=== PATIENT | female | born 1940 | race Caucasian/White ===

== ENCOUNTER 2016-05-29 23:40 | Inpatient (IN) ==
[2016-05-30 00:46] LABS: BASO% 0.2 % (0.0-0.8); EOS# 0.02 X1000 (0.0-0.7); EOS% 0.1 % (0.0-10.0); HEMATOCRIT 31.8 % (37.0-47.0); HEMOGLOBIN 10.7 g/dL (12.0-16.0); IMM GRAN# 0.29 X1000 (0.0-0.04); IMM GRAN% 1.6 % (0.0-0.5); LYMPH# 1.07 X1000 (1.2-3.4); MANUAL DIFF NEEDED? NO; MCH 35.8 PG (27-31); MCHC 33.6 g/dL (33-37); MCV 106.4 FL (81-99); MONO# 0.97 X1000 (0.11-0.59); MONO% 5.4 % (1.7-9.3); MPV 10.7 FL (7.4-10.4); NEUT% 86.7 % (42.2-75.2); PLT 228 X1000 (130-400); RBC 2.99 XMIL (4.2-5.4)
[2016-05-30 01:09] LABS: ALBUMIN 2.8 g/dL (3.5-5.0); CALCIUM 8.2 mg/dL (8.8-10.2); MAGNESIUM 1.8 mg/dL (1.5-2.7); POTASSIUM 4.1 mmol/L (3.5-5.1); TOTAL BILIRUBIN 0.23 mg/dL (0.20-1.00)
[2016-05-30 01:46] LABS: INR 1.1; PROTIME 11.3 Seconds (9.2-11.7); PTT 26.8 Seconds (22.0-36.0)
[2016-05-30] MEDS ORDERED: DILAUDID IV ONE (01:48)
[2016-05-30] MEDS ORDERED: DILAUDID ONE (01:49)
[2016-05-30] MEDS ORDERED: CATAPRES PO ONE ×2 (03:49)
[2016-05-30] MEDS ORDERED: NS 1,000 ML IV ONE (03:59)
[2016-05-30] MEDS ORDERED: TYLENOL PO PRN (04:39)
--- NOTE | 2016-05-30 04:49 | HISTORY AND PHYSICAL ---
REASON FOR ADMISSION: Chest pain 8 hours ago. HISTORY OF PRESENT ILLNESS: Ms. Brennan Morris is a 75-year-old lady with a past medical history of type 2 diabetes, hypertension, stage IV pancreatic cancer, and osteoarthritis who comes in today complaining of "hard chest pain" which was radiating down her left arm and up her left jaw. It was associated with worsening of her chronic nausea, palpitations, and shortness of breath. She denies any antecedent history of leg swelling or extremity redness or pain. No cough, fever, or chills. No PND or orthopnea. No hemoptysis. She states she has a very poor appetite. Three weeks ago, she received chemotherapy from Dr. Wood and a week from now is scheduled to have a PET scan. She also reports chronic abdominal pain with simultaneous nausea but this has not worsened today. The patient also reports that the pain was so intense that she almost passed out. REVIEW OF SYSTEMS: Twelve systems were reviewed and were negative except for the positive findings noted in the HPI. She has subjective weight loss noted. She received 0.5 mg of Dilaudid and this has resolved her pain. ALLERGIES: No known allergies. MEDICATIONS: She is on diazepam 2 mg b.i.d. and at bedtime, Lasix 80 mg daily, lisinopril 20 mg daily, hydrocodone 10 mg q.6 p.r.n., Megace 400 mg daily, Reglan 5 mg four times a day, omeprazole 20 mg daily, Zofran 4 mg q.6 p.r.n., Klor-Con 10 mEq daily. FAMILY HISTORY: No history of heart disease, cancer, or thrombophilia in first-degree relatives. SOCIAL HISTORY: She is still currently smoking, smokes about a pack a day. No immediate plans to quit. No alcohol or illicit drug use. SURGICAL HISTORY: She has had hysterectomy, hemorrhoidectomy, heel spur resection, and Whipple procedure performed by Dr. Bolden. LABORATORY WORK: EKG showed sinus tachycardia with PACs. White count is 18,000, hemoglobin and hematocrit 10 and 31, with an MCV of 106, platelets 228,000, 86% neutrophils. BUN is 18, creatinine 1, glucose 159. CK 35. ProBNP 1300. PT and PTT are normal. D-dimer was 1.55. PHYSICAL EXAMINATION: GENERAL: Chronically ill, woman who is alert and oriented to person and time with normal mood and affect. VITAL SIGNS: Her blood pressure when I saw her was 180/70, heart rate was 115, 98.5, respiration was 18. O2 saturation is 97% on room air. HEENT: Head is normocephalic, atraumatic. Eyes: She is pale. She is anicteric. MELINDA, EOMI. ENT and oropharyngeal exam, no oropharyngeal exudates, no central cyanosis. NECK: Supple. No JVD or carotid bruit. No thyromegaly. LYMPHATICS: No lymphadenopathy in the cervical, supraclavicular, axillary chains. CHEST: Surprisingly is clear to auscultation with diminished air entry in the bases. CARDIOVASCULAR: First and second heart sounds heard. No gallops, murmurs, rubs. Rhythm is irregular. ABDOMEN: Protuberant, soft, with mild epigastric and upper quadrant tenderness. No rebound or guarding. No mass or organomegaly appreciated. RECTAL: Examination is deferred at this time. EXTREMITIES: No edema, clubbing, or peripheral cyanosis. Pulses distally are intact and with good volume symmetrically. NEUROLOGICAL: No focal deficits. SKIN: Intact with no breakdown, lesions, or erythema. MUSCULAR: Examination is grossly normal. ASSESSMENT: 1. Chest pain. Etiology yet to be determined. 2. Leukocytosis, reactive versus probably secondary to granulocyte-colony stimulating factor administration. 3. Stage IV pancreatic cancer. 4. Macrocytic anemia, (?) chemotherapy effect. 5. Hypertension. 6. Type 2 diabetes. PLAN: At this time, due to the fact that prior to this time, the patient has moderate probability for ischemic heart disease and for pulmonary embolism (Well's criteria), I think the prudent thing to be done would be to order a CT angiogram to rule out a PE since this is occurring on the left hemothorax as opposed to the right where the chest x-ray today showed a pleural effusion which has been there for a while. We will do serial cardiac enzymes to rule out an ischemic etiology. However, in the bigger scheme of things, the patient has a stage IV cancer and I doubt if any aggressive intervention will be offered if she does have an acute coronary syndrome due to her degree of malignancy. However, if she does have a PE, we will treat her optimally with anticoagulants per Dr. Wood's discretion. Dr. Wood will be consulted to see the patient in the a.m. In the interim, we will treat the patient symptomatically. Primary care physician is Dr. Ribeiro. Currently, the patient is asymptomatic and resting comfortably, and I have shared the plan of action with her. cc: MD Maco Downing MD Sammy Becdach, MD
[2016-05-30] MEDS: ZOFRAN IV PRN ×3 (04:50→19:29)
[2016-05-30] MEDS: MORPHINE IV PRN ×4 (04:50→19:33)
[2016-05-30] MEDS: PRILOSEC PO SCH ×2 (06:30→08:25)
[2016-05-30] MEDS: LOVENOX SUBQ SCH ×2 (06:34→08:25)
[2016-05-30] MEDS: REGLAN PO SCH ×4 (08:25→20:46)
[2016-05-30] MEDS: VALIUM PO SCH ×2 (08:25→20:46)
[2016-05-30] MEDS: ASPIRIN PO SCH (08:25)
[2016-05-30] MEDS: LASIX PO SCH (08:25)
[2016-05-30] MEDS ORDERED: PRILOSEC PO SCH (09:00)
--- NOTE | 2016-05-30 09:43 | Diag Imaging Result Document ---
PROCEDURE NAME: ANGIOGRAM/PULMONARY ARTERIES - 05/30/2016 CT ANGIOGRAM PULMONARY ARTERIES WITH CONTRAST: TECHNIQUE: Exam performed with intravenous contrast. A dose reduction protocol was used. Axial and reformatted coronal images are obtained. Compared with a CT thorax of 05/10/2016. FINDINGS: There are no filling defects identified in the pulmonary arteries. There is no indication of aortic dissection. There is a moderate right pleural effusion which is increased. There is a 1.6-cm cavitary lesion at the right lower lobe which appears stable. There is a 0.9-cm nodular opacity at the medial left apex which appears stable. There is no pneumothorax seen. There are no substantially enlarged mediastinal lymph nodes identified. There is fatty infiltration of visualized liver noted. IMPRESSION: 1. No evidence of pulmonary embolism. 2. Moderate right pleural effusion which has increased. 3. Stable cavitary opacity at right lower lobe. Stable small nodular density at the left apex. Metastatic lesions cannot be excluded. A [facility] physician provided preliminary results at 6:21 a.m. on 05/30/2016. [facility] CENTERDelfino
--- NOTE | 2016-05-30 10:02 | Diag Imaging Result Document ---
PROCEDURE NAME: CHEST-PORTABLE - 05/30/2016 PORTABLE CHEST: Compared with 04/14/2016. FINDINGS: Central venous catheter remains in place. There is a moderate right pleural effusion which is increased. There are no other acute changes identified. There is no pneumothorax seen. IMPRESSION: Moderate right pleural effusion which has increased. MTDD
[2016-05-30] MEDS: NICODERM PATCH TD SCH (11:39)
[2016-05-30] MEDS: NITROGLYCERIN TOP SCH ×2 (11:39→16:56)
--- NOTE | 2016-05-30 12:27 | PROGRESS NOTE ---
DATE: 05/30/2016 SUBJECTIVE: The patient's chart was reviewed. In summary, patient was admitted in the early childhood assistant hours with chest pains of undetermined etiology and leukocytosis. Full evaluation was pursued. Chest x-ray revealed a moderate right pleural effusion. CT angiogram of the chest also revealed a moderate right pleural effusion and a stable cavitary opacity at the right lower lobe. Stable small nodular densities at the left apex were also identified. Upon review of old data, this has been biopsied in the past and confirmed to be metastatic pancreatic cancer. Initial CK level returned at 35 with a troponin of 0.018. Repeat troponin this morning returned at 0.174. Upon my evaluation, patient was chest pain free. She is being treated with palliative measures. OBJECTIVE: Vital Signs: T-max 98.5 degrees, heart rate 83-115, respirations 15-18, blood pressure 115-177/64-125. General: Chronically ill-appearing, no acute distress. Cardiovascular: Regular rate and rhythm. No significant murmurs, rubs, or gallops. Pulmonary: Decreased breath sounds at the right base. Abdomen: Soft, diffusely tender without guarding or rebound. Positive bowel sounds. Extremities: Moves all extremities well. No significant clubbing, cyanosis, or edema. Dermatologic: Evaluation reveals no evidence of rash. ASSESSMENT AND PLAN: 1. Chest pain/unstable angina-as above, initial cardiac enzymes returned negative. Repeat troponin returned positive. The patient is currently having an echocardiogram performed. We will consult Dr. Mckeon. We will determine further plans depending on his evaluation. We will remain aware that patient does have underlying metastatic pancreatic cancer. 2. Metastatic pancreatic cancer-this is very concerning. Patient has a persistent pleural effusion with pulmonary disease. We will check that Dr. Wood has been consulted. 3. Leukocytosis-at this point, this likely is secondary to granulocyte colony stimulating factors. We will continue to follow serial evaluations. 4. Hypertension-patient's blood pressure is elevated. We will resume her home medications. 5. Tobacco use-we will start a nicotine patch. 6. Type 2 diabetes-we will cover patient with sliding scale insulin. cc: MD Maco Busch MD
[2016-05-30] MEDS: HUMALOG SUBQ SCH ×2 (16:56→20:49)
--- NOTE | 2016-05-30 18:13 | CONSULTATION ---
DATE OF CONSULTATION: 05/30/2016 REQUESTING PHYSICIAN: Dr. Moore on behalf of Dr. Ribeiro. REASON FOR CONSULTATION: Chest pain, positive troponins, coronary heart disease suspected. HISTORY: The patient is a 75-year-old female who was in her usual state of health at home yesterday around 7 p.m. May 29, when all of a sudden, she developed severe substernal chest pain radiating to the left shoulder, left side of the jaw, left arm. It lasted for a number of hours until eventually it got better after presentation to the emergency room department. I believe they gave her some pain shot and that seemed to help. The patient says that she has not experienced any pains like that in the past. Upon presentation a chest x-ray was done that shows a moderate right pleural effusion which has increased from prior. A CT of the chest was done which shows no pulmonary embolism, there was a moderate right pleural effusion which has increased, a stable cavitary opacity at the right lower lobe, stable small nodular density of the left apex. The patient had an EKG done at 11 p.m. which sinus rhythm with PACs , no ischemic changes. Troponin level initially was 0.018 and then 0.174. Pro BNP was 1346. Upper are normal for her would be 353. The patient had a D-dimer of 1.[address] scan of the chest. Her white count was 17,870; hemoglobin 10.7, hematocrit 31.8, platelet count 228 ,000. The patient is feeling better this morning. I am seeing her at 11 a.m. She is not having any more pains. PAST MEDICAL HISTORY: Positive for pancreatic cancer metastatic to the lung. Back on December 22, 2015, she underwent fine needle aspiration of the right lung complicated by pneumothorax. 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 She has been undergoing chemotherapy by the oncology services. The patient does have history of diabetes, hypertension, and perioperative paroxysmal atrial fibrillation in July 2014 around the time when she had extensive abdominal surgery. [facility] Fields because of abnormal ECG. She had received on 01/30/13 a lexiscan MPI which showed a focal partially reversible apical anterior defect. Back then attenuation artifact was suspected. She has had noninvasive studies of the legs indicating possible occlusive disease of the superficial femoral artery bilateral compatible with bilateral claudication. PAST SURGICAL HISTORY: Her surgical history is hysterectomy, hemorrhoidectomy , she has had Whipple procedure.August 06 2014: pacreaticoduodenectomy,right hemicolectomy, Witzel type jejunostomy. Pathology indicated moderately differentiated ductal adenocarcinoma of pancreas extending into duodenum and peripancreatic tissue with lymphovascular invastion and neural invasion.4 lymph nodes were positive. SOCIAL HISTORY: She lives by herself. The patient states that she has been a smoker of 1 and 1/2 packs a day for many years, at least 50 years. She has not quit or cut down on it in spite of the diagnosis of malignancy. REVIEW OF SYSTEMS: Chronically debilitated, getting more shortness of breath lately, especially with physical activity; no prior episodes of chest pain other than the one that she reported at the time of admission. MEDICATIONS: Please refer to the EMR. PHYSICAL EXAMINATION: VITAL SIGNS: Blood pressure today is 172/64, temperature 97.8, respirations 22 , pulse 83. GENERAL: The patient is awake, alert, chronically ill. HEENT: She has alopecia secondary to chemotherapy. No oral mucosal lesions. NECK: Veins are not distended. CHEST: Shows significantly diminished breath sounds in the right lung with dullness to percussion. No rales are noted. CARDIAC: Heart sounds regular and rhythmic. I do not hear any murmurs, rubs, or gallops. ABDOMEN: Very exquisitely tender in the epigastric area with no hepatomegaly. Bowel sounds are present. EXTREMITIES: Showed no evidence of any significant edema. Pulses are diffusely diminished. NEUROLOGIC: Generally she appears to be weak. She is awake, follows commands and oriented x3, moves 4 extremities. IMPRESSION AND PLAN: 1. The patient presented with chest pain that is very suspicious for an episode of angina pectoris prolonged. 2. History of metastatic pancreatic cancer to the lung with a growing or enlarging pleural effusion on the same side. 3. A history of long-term smoker 1 and 1/2 packs a day for 50 years. 4. History of hypertension in the past. 5. history of mildly abnormal nuclear MPI stress test back in January 2013. 6. History of perioperative paroxysmal atrial fibrillation July 2014. 7. 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 8. s/p pancreatectomy. 9. large right pleural effusion noted on CT scan of chest. RECOMMENDATIONS: From cardiology viewpoint, I would recommend a gathering of physicians to determine the actual real prognosis of this patient. It seems that with metastatic pancreatic cancer her odds for survival are extremely low and it would not make any sense to subject the patient to a series of cardiac tests that would eventually lead to a recommendation of heart catheterization. I would suggest to treat her symptomatically for the time being by optimizing her systemic blood pressure with anti-hypertensive drugs and general generous use of opioids and consider also draining the enlarging right pleural effusion. That may result in more symptomatic relief of her discomfort. Thank you for asking us to participate in her evaluation. cc: MD Maco Gonzalez MD MTDD
[2016-05-31] MEDS: MORPHINE IV PRN ×5 (00:29→22:54)
[2016-05-31] MEDS: NITROGLYCERIN TOP SCH ×5 (00:30→22:55)
[2016-05-31] MEDS: VALIUM PO SCH ×4 (02:25→21:22)
--- NOTE | 2016-05-31 05:52 | EKG Report ---
Test Performed on : 05/29/2016 11:58:41 PM Test Reason : chest pain Blood Pressure : / mmHG Vent. Rate : 097 BPM Atrial Rate : 097 BPM P-R Int : 146 ms QRS Dur : 074 ms QT Int : 350 ms P-R-T Axes : 048 050 027 degrees QTc Int : 444 ms Sinus rhythm. with premature atrial complexes. Otherwise normal ECG When compared with ECG of 16-SEP-2014 13:50, premature atrial complexes. are now present Unconfirmed Result
[2016-05-31] MEDS: PRILOSEC PO SCH (06:22)
[2016-05-31] MEDS: HUMALOG SUBQ SCH ×4 (06:23→21:22)
--- NOTE | 2016-05-31 07:43 | EKG Report ---
Test Performed on : 05/31/2016 06:56:23 AM Test Reason : TN non ST elevation Blood Pressure : / mmHG Vent. Rate : 100 BPM Atrial Rate : 100 BPM P-R Int : 142 ms QRS Dur : 076 ms QT Int : 372 ms P-R-T Axes : 032 023 -32 degrees QTc Int : 479 ms Normal sinus rhythm. T wave abnormality, consider inferior ischemia Prolonged QT Abnormal ECG When compared with ECG of 29-MAY-2016 23:58, (Unconfirmed) premature atrial complexes. are no longer present T wave inversion now evident in Inferior leads T wave inversion now evident in Lateral leads Confirmed by Rogers MARRERO, Braden Frankel ([id number]) on 05/31/2016 9:40:00 AM
[2016-05-31] MEDS: LOVENOX SUBQ SCH ×2 (08:42→09:08)
[2016-05-31] MEDS: REGLAN PO SCH ×4 (08:42→21:21)
[2016-05-31] MEDS: ASPIRIN PO SCH (08:42)
[2016-05-31] MEDS: LASIX PO SCH (08:42)
[2016-05-31] MEDS: PRINIVIL PO SCH (08:42)
[2016-05-31] MEDS: NICODERM PATCH TD SCH (08:43)
--- NOTE | 2016-05-31 16:24 | ECHO REPORT ---
ORDER DATE: 05/30/2016 INTERPRETING PHYSICIAN: Dr. Mckeon REQUESTING PHYSICIAN: CLINICAL INDICATIONS: This is a 75-year-old female with chest pain, diabetes, hypertension, metastatic pancreatic cancer, presenting with chest pain. M-MODE MEASUREMENTS: Right ventricle: 3.1 cm. Left ventricle end diastole: 4.2 cm. Left ventricle end systole: 2.9 cm. Posterior wall: 1.0 cm. Interventricular septum: 1.2 cm. Left atrium: 3.1 cm. Aortic root: 2.9 cm. SUMMARY OF 2-DIMENSIONAL IMAGIN. Left ventricular function is normal. Ejection fraction is estimated at 64%. 2. There is questionable hypokinesis of the basal posterior wall. This is very subtle. The global function is completely normal. 3. The mitral valve shows trace regurgitation. 4. Pulse wave Doppler of mitral inflow shows reversal of the E and the A wave. 5. Tissue Doppler of the septal and lateral mitral annulus averages 5.5 cm. 6. The aortic valve looks normal. Color flow mapping is unremarkable. 7. The tricuspid valve shows very mild regurgitation. 8. The pulmonary pressure is estimated t 37 mmHg. 9. Pulmonic valve is unremarkable. 10.There is no pericardial effusion, mass or thrombus. CONCLUSIONS: 1. Normal or very well preserved left ventricular systolic function. Ejection fraction is 64%. There is a questionable focal hypokinetic segment in the basal to mid posterior wall of the left ventricle. Again, this is very subtle and might be artifactual. 2. Impaired left ventricular relaxation. 3. Mildly elevated pulmonary pressure at 37 mmHg. 4. No evidence of any significant valvular abnormality. Clinical correlation is recommended. cc: MD Tonja Gonzalez MD Timothy P. Weirich, MD
--- NOTE | 2016-05-31 16:55 | PROGRESS NOTE ---
DATE: 05/31/2016 SUBJECTIVE: The patient's chart was reviewed in regard to all of the findings over the weekend and her presentation. This was discussed at length with the patient. I also talk with Dr. Mckeon and I put a call in to Dr. Milan. The patient presented with chest pain and had subsequent elevations in troponin. Dr. Mckeon evaluated her but given her grave ultimate prognosis he was very reluctant to do any type of significant cardiovascular testing. I was in agreement with this and I discussed it with the patient and she also agreed. The patient had an outpatient procedure scheduled for tomorrow with Dr. Milan in which she was going to get an EGD with esophageal dilation due to difficulty swallowing medications. She was also going to have colonoscopy. This was scheduled in the outpatient center. The patient expressed a deep concern about her transportation issues between home and did not want to go home before Dr. Milan had decided whether she could have this procedure done while she was in the hospital. Given her recent history with cardiovascular issues, I am not sure that it is appropriate particularly given the fact that the patient can swallow, it is just not as easy as it was in the past. OBJECTIVE: Vital signs: Temperature 98, pulse rate 89, blood pressure 149/69. General: She is an elderly white female who looks somewhat ravaged by her cancer and chemotherapy. In general, she is alert, oriented, conversive, and appropriate. Lungs: Clear. There is a slight diminishment of breath sounds in the posterior right base. She is not wheezing. She is not struggling to breathe. Extremities: There is 1+ edema. ASSESSMENT AND PLAN: 1. As discussed above, Dr. Mckeon does not want to do any aggressive cardiac testing and the patient does not want this done either. 2. I offered the patient a therapeutic palliative thoracentesis to remove the fluid and help her breathing. She refused this based on the fact that when she had a previous lung biopsy she ended up with a pneumothorax. I tried to explain that the procedure was different but she steadfastly refused. 3. The patient's swallowing difficulty and bowel issues persists. Given recent cardiac events. I am not sure if Dr. Milan wants to put her under anesthesia to do these procedures. They will not be life-saving. I put in a call to Dr. Bjorn but never got a call back. I also put in a consult so hopefully he will come and see the patient today. I realize he is off-site doing procedures elsewhere today, so there may be some communication difficulties. 4. The patient's overall prognosis was stage IV pancreatic cancer and likely lung metastases as well is terrible. She is aware of this and I stated this to her in our interview today. She wants to be comfortable and does want to be able to swallow better but again, I am not sure that this procedure would be a great idea right now. 5. We will supply her with whatever needs she has for pain control. cc: Maco Ribeiro MD
[2016-05-31] MEDS: ZOFRAN IV PRN (21:30)
[2016-06-01] MEDS: ZOFRAN IV PRN ×4 (01:35→22:30)
[2016-06-01] MEDS: MORPHINE IV PRN ×7 (01:36→20:24)
[2016-06-01] MEDS: PRILOSEC PO SCH ×2 (05:51→07:34)
[2016-06-01] MEDS: HUMALOG SUBQ SCH ×4 (06:39→20:25)
[2016-06-01] MEDS: NITROGLYCERIN TOP SCH ×4 (06:52→22:33)
[2016-06-01] MEDS: LOVENOX SUBQ SCH (08:43)
[2016-06-01] MEDS: NICODERM PATCH TD SCH (08:43)
[2016-06-01] MEDS: ASPIRIN PO SCH (08:48)
[2016-06-01] MEDS: REGLAN PO SCH ×4 (08:48→20:25)
[2016-06-01] MEDS: VALIUM PO SCH ×3 (08:48→20:25)
[2016-06-01] MEDS: LASIX PO SCH (08:48)
[2016-06-01] MEDS: PRINIVIL PO SCH (08:48)
--- NOTE | 2016-06-01 09:29 | PROGRESS NOTE ---
DATE: 06/01/2016 CHIEF COMPLAINT: Chest pain. SUBJECTIVE: Mrs. Morris had an uncomfortable night last night. She was having nausea she was having pain in the anterior chest. She says that she says that the pain is pleuritic in nature. She had issues with the IV. They had to poke her several times in the right arm. Eventually, they found an IV in the left arm. They gave her pain medication and now she is more comfortable. I am seeing her about 7:45 a.m.. OBJECTIVE: Vital signs: Blood pressure 152/51, temperature 98.2, pulse 100, respirations 18. General: She is awake, alert, oriented. HEENT: Unremarkable. Chest: Diminished breath sounds in the right lung. Dullness to percussion. Cardiac: Heart sounds regular and rhythmic. I do not hear a gallop or murmur. Abdomen: Nontender. Extremities: No edema. Abdomen: I do not feel any hepatomegaly in the abdomen. EKG: A 12-lead EKG done yesterday at 6:56 in the morning shows a nonspecific diffuse T-wave abnormality in the inferoapical leads. That is a change compared to prior one. BLOOD WORK: Her troponins were initially 0.018 then became positive, 0.174, 0.304, and 0.327. Her CPKs were all within normal range. IMPRESSION: 1. Patient presenting with chest pain, possibly [id number] myocardial infarction. The patient had nonspecific T-wave changes and a clinical course consistent with it. Echocardiogram revealed well-preserved ejection fraction of the left ventricle with questionable focal posterior wall hypokinesis. Patient is likely to have underlying coronary heart disease, given her long-term history of being a smoker. 2. Very advanced metastatic pancreatic cancer with progression of disease in spite of therapy. She has pleural effusion on the right side. Her current chest pain is pleuritic. 3. History of tobacco use for a long time. The patient probably has underlying COPD as a consequence of it. 4. History of perioperative paroxysmal atrial fibrillation in July of 2014. RECOMMENDATION: I have reviewed Dr. Ribeiro's from May 31, and I completely agree with each one of his statements. From a cardiac viewpoint, I do not believe that this patient is going to benefit in any way by putting her through any additional cardiac testing. She is not a candidate for catheterization or angioplasty. I would suggest to offer comfort measures.Thoracentesis of right lung may be an effective palliative measure. At this point in time, my recommendation is to refer this patient for hospice care, and please feel free to call me should you have any questions about my opinion and evaluation. cc: MD Maco Gonzalez MD MTDD
--- NOTE | 2016-06-01 10:27 | CONSULTATION ---
DATE OF CONSULTATION: 05/31/2016 ADMITTING PHYSICIAN: Tonja Sainz MD. REQUESTING PHYSICIAN: Tonja Sainz MD. We appreciate this consult. CHIEF COMPLAINT: Chest pain. 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 The patient was recently begun on Abraxane with the last dose being given on 05/19/2016. The patient presented to [facility] Emergency Department secondary to "hard chest pain which radiated down her left arm and up her left jaw". She reports it was associated with nausea, shortness of breath and palpitations. The patient has recently had a very poor appetite and has lost weight. Her current weight is 135 pounds. The patient is admitted with consult by cardiology. We are consulted to follow along secondary to the patient's history of pancreatic cancer. PAST MEDICAL HISTORY: 1. Pancreatic cancer. 2. Chronic kidney disease stage III. 3. Iron-deficiency anemia. 4. Coronary artery disease. 5. Diabetes mellitus type 2. 6. Osteoarthritis. 7. Hypertension. 8. Recent pleural effusion. PAST SURGICAL HISTORY: 1. Hysterectomy. 2. Hemorrhoidectomy. 3. Heel spur resection. 4. Whipple procedure. FAMILY HISTORY: Negative for any oncologic or hematologic problem. SOCIAL HISTORY: The patient smokes approximately 1 pack of cigarettes a day. She has no history of alcohol or illicit drug use. MEDICATIONS ON ADMISSION: 1. Diazepam. 2. Lasix. 3. Lisinopril. 4. Hydrocodone. 5. Megace. 6. Reglan. 7. Omeprazole. 8. Zofran. 9. Klor-Con. ALLERGIES: The patient has no known drug allergies. REVIEW OF SYSTEMS: A 14 point review of systems was obtained and is negative, except for as mentioned in HPI. PHYSICAL EXAM: General: Ms Morris is an elderly, 75-year-old, female , sitting up in bed in no immediate distress. Vital Signs: Temp 98.0 degrees, blood pressure 149/ 69, heart rate 89, respirations 18, O2 saturation is 98% on room air. HEENT: Normocephalic, atraumatic. Mucous membranes are pink and moist. Sclerae is anicteric. Extraocular movements intact. Neck: Supple. Lungs: Clear to auscultation bilaterally. Chest expansion is equal bilaterally. CV: S1, S2 is heard without murmur, rub or gallop. Abdomen: Soft, nondistended, tender in the right upper quadrant. Bowel sounds are positive in all quadrants. No rebound or guarding noted. Extremities: Without clubbing, cyanosis, or edema. Dermatologic: No rashes, bruises or lesions. Neurologic: The patient is awake, alert, and oriented x3. She has no focal deficit at this time. LABORATORY DATA: Hemoglobin 10.7, hematocrit 31.8, white blood cell count 17.97 , platelets 228. ANC is 15.59, INR 1.10, D-dimer is 1.55. Sodium 137, potassium 4.1, chloride 106, CO2 is 19, BUN 18, creatinine 1.0, glucose 159, calcium 8.2, magnesium 1.8, bilirubin 0.23, alkaline phosphatase 159, AST 12, ALT 7, troponins are 0.327. ProBNP is 1346. IMAGING STUDIES: Chest x-ray reveals moderate right pleural effusion. Pulmonary arteriogram reveals no pulmonary embolus and further confirms right lower lobe cavitary opacity. ASSESSMENT AND PLAN: 1. Stage IV pancreatic cancer. Currently on Abraxane weekly, last treatment being 05/19/2016. We will hold all further treatments until the patient's acute illness has past. 2. Leukocytosis, questionably related to Neulasta affect. White blood cell count is currently 17.97. 3. Chest pain with an elevated troponin to 0.327. Cardiology is currently following. 4. Diabetes mellitus type 2. Glucose is currently 159, stable at this time. 5. Abdominal pain that has been ongoing. The patient is being followed by Dr. Milan with EGD and colonoscopy scheduled for Wednesdays. 6. We will follow along with you and make further recommendations pending outcomes. 7. The above reflects the history, exam, assessment and plan of Dr. Wood. Dictated by KENDALL Morales for Jd Wood MD cc: KENDALL Morales MD Timothy P. Weirich, MD [facility] INSANEDelfino
--- NOTE | 2016-06-01 11:05 | Diag Imaging Result Document ---
PROCEDURE NAME: CHEST-2 VIEWS - 06/01/2016 SEATED INSPIRATORY AND EXPIRATORY AP RADIOGRAPH OF THE CHEST, 2 VIEWS: COMPARISON: 05/30/2016. FINDINGS: There is no evidence of pneumothorax status post right thoracentesis. No significant residual pleural fluid can be identified on the right status post thoracentesis. The right lung base is re-aerated. The chest is stable otherwise. IMPRESSION: No evidence of pneumothorax status post right thoracentesis with significant decrease in the amount of pleural fluid on the right as compared to the preprocedural radiograph.
--- NOTE | 2016-06-01 11:36 | CONSULTATION ---
DATE OF CONSULTATION: 05/31/2016 HISTORY OF PRESENT ILLNESS: This is a 75-year-old white female who we had recently seen in our office on 05/17/2016. At that time, she had complained of abdominal pain, abdominal cramping, rectal pain. She had also noted some dysphagia. An EGD and colonoscopy was scheduled for outpatient procedures for 06/01/2016, but the patient presented to the hospital with chest pain. She was evaluated by Cardiology, and it was felt due to her other medical problems, including pancreatic cancer, that an invasive cardiac workup would not be recommended. The patient denies chest pain now. She does report chronic nausea. She has had some shortness of breath. She had a recent CT scan that showed a new patchy focal opacity in the right lower lung. She is receiving chemotherapy and following with Dr. Wood. She had a recent PET scan, but she does not know those results. She reports chronic abdominal pain and cramping associated with some nausea with episodes of vomiting. PAST MEDICAL HISTORY: For pancreatic cancer, diabetes, hypertension. PAST SURGICAL HISTORY: Whipple surgery, hemorrhoidectomy, hysterectomy. ALLERGIES: No known drug allergies. HOME MEDICATIONS: Potassium 10 mEq daily, Zofran 4 mg as needed, omeprazole 20 mg daily, Reglan 5 mg 4 times a day, Megace 400 mg daily, lisinopril 20 mg daily, Evans 10/325 as needed, Lasix 80 mg daily, Valium 2 mg twice a day, and Valium 2 mg every night. SOCIAL HISTORY: She is a . She has 3 children. She smokes 1 pack of cigarettes daily. REVIEW OF SYSTEMS: Per HPI. PHYSICAL EXAMINATION: General: She is awake and alert. No acute distress. Lung: The lung sounds are with some decreased breath sounds noted more on the right. Abdomen: Soft. Positive bowel sounds. Currently nontender. Vital Signs: Temperature 98.2 degrees, pulse 100, respirations 18, blood pressure 152/61. LABORATORY DATA: Hematology: White count 17.97, hemoglobin 10.7, hematocrit 31.8, MCV 106.4, platelets 228,000. Coagulation: Prothrombin time 11.3, INR 1.1, PTT 26.8, D-dimer 1.55. Chemistries: Sodium 137, potassium 4.1, chloride 106, CO2 of 19, BUN 18, creatinine 1, glucose 159, calcium 8.2, alkaline phosphatase 159, ALT 7, AST 12. Troponin 0.304 on 05/30/2016. Pulmonary arteriogram showed no evidence of pulmonary embolism. There is a moderate right pleural effusion. Stable cavitary opacity at the right lower lobe. Stable small nodular density at the left apex. Metastatic lesions cannot be excluded. ASSESSMENT AND PLAN: 1. Chest pain with elevated troponin. She has been evaluated by Dr. Mckeon, and he does not feel that aggressive cardiac testing would be of benefit to the patient due to her other medical issues. 2. Dysphagia. 3. Abdominal pain/rectal pain. The patient was already scheduled for an outpatient esophagogastroduodenoscopy and colonoscopy for 06/01/2016. We will discuss proceeding while she is in the hospital. I have discussed with the patient, and she does want to go ahead and proceed with the procedures. I will discuss further with Dr. Milan on his recommendations. Tentatively, we will place her on the schedule for Tuesday for an esophagogastroduodenoscopy and colonoscopy if the patient is stable enough to proceed. We will continue to follow. Further plans will be made as needed. Dictated by KENDALL Aden for Hector Milan MD cc: KENDALL Boyd MD Timothy P. Weirich, MD
[2016-06-01 12:46] LABS: BASO% 0.1 % (0.0-0.8); EOS# 0.01 X1000 (0.0-0.7); HEMATOCRIT 33.2 % (37.0-47.0); HEMOGLOBIN 10.8 g/dL (12.0-16.0); IMM GRAN# 0.14 X1000 (0.0-0.04); IMM GRAN% 0.6 % (0.0-0.5); LYMPH# 0.62 X1000 (1.2-3.4); LYMPH% 2.8 % (20.5-51.1); MANUAL DIFF NEEDED? YES; MCH 35.1 PG (27-31); MCHC 32.5 g/dL (33-37); MCV 107.8 FL (81-99); MONO# 0.65 X1000 (0.11-0.59); MPV 10.4 FL (7.4-10.4); NEUT% 93.5 % (42.2-75.2); PLT 271 X1000 (130-400); RBC 3.08 XMIL (4.2-5.4)
[2016-06-01] MEDS: NORCO-10 PO PRN ×2 (12:49→22:28)
[2016-06-01 12:58] LABS: ALBUMIN 2.7 g/dL (3.5-5.0); CALCIUM 8.2 mg/dL (8.8-10.2); POTASSIUM 4.6 mmol/L (3.5-5.1); TOTAL BILIRUBIN 0.34 mg/dL (0.20-1.00); TOTAL PROTEIN 5.7 g/dL (6.3-8.3)
[2016-06-01 13:07] LABS: LYMPHS 2 % (21-51); MONO 2 % (1-9)
--- NOTE | 2016-06-01 13:09 | PROGRESS NOTE ---
DATE: 06/01/2016 SUBJECTIVE: Patient is a little nauseated today. She does report some abdominal pain. She did have a thoracentesis done today. We had planned for an EGD and colonoscopy for tomorrow. She is actually scheduled as an outpatient for today before she had to be admitted to the hospital. Yesterday when I talked with the patient, she wanted to go ahead and proceed with the procedures, but today after discussing with her, due to her other issues going on and her elevated troponin, we will hold off proceeding unless needed urgently. We will plan to follow up after her discharge and reschedule the procedures for a later date. Patient voices understanding. OBJECTIVE: Vital signs: Temperature 98.2, pulse 100, respirations 18, blood pressure 152/61. LABORATORY: Hematology: White count 21.94, hemoglobin 10.8, hematocrit 33.2, MCV 107.8, platelets 271. ASSESSMENT AND PLAN: 1. Chest pain has improved. Elevated troponin. 2. Metastatic pancreatic cancer. 3. Nausea/vomiting with some problems with dysphagia. She has also had some issues with lower abdominal pain, rectal pain. PLAN: Continue supportive care. GI will be available while she is in the hospital as needed, and once she is discharged, we can reschedule her EGD and colonoscopy. Patient voices understanding of this plan. Dictated by KENDALL Aden for Hector Milan MD cc: KENDALL Boyd MD Timothy P. Weirich, MD
--- NOTE | 2016-06-01 13:10 | PROGRESS NOTE ---
DATE: 06/01/2016 SUBJECTIVE: The patient has no new complaints. Despite her refusal to do a thoracentesis yesterday, apparently Dr. Wood spoke to her yesterday and convinced her that she needed to go through with this. She now wants the thoracentesis to proceed today and Dr. Milan has been consulted for upper and lower endoscopy tomorrow. OBJECTIVE: Vital Signs: Temperature 98.0 degrees, pulse rate is 100, blood pressure is 152/61. Lungs: Clear with decreased breath sounds in the right base. Cardiovascular: Regular bordering on tachycardia. Neurologic: The patient is intact. LABORATORIES: White cell count 21.9, hematocrit 33.2. Blood sugars are normal. ASSESSMENT AND PLAN: 1. Thoracentesis to be performed today. At the time of this dictation that had already been performed and follow up chest x-ray showed no pneumothorax with a marked decrease in the amount of fluid present on the right base. 2. The patient has esophagogastroduodenoscopy and colonoscopy scheduled tomorrow per Dr. Milan. 3. Cardiology issues have been addressed and no significant workup or actions are pending. 4. Patient's diabetes is fine. 5. Will continue all supportive care. cc: Maco Ribeiro MD
--- NOTE | 2016-06-01 13:33 | Diag Imaging Result Document ---
PROCEDURE NAME: THORACENTESIS W/IMAGE GUIDANCE - 06/01/2016 ULTRASOUND-GUIDED RIGHT THORACENTESIS: COMPARISON: None available. FINDINGS: Risks, benefits, and alternatives were discussed with the patient, and informed consent was obtained. The patient was prepped and draped in sterile fashion and local anesthesia was achieved with 1% lidocaine solution. Using ultrasound guidance, a large-bore catheter was inserted into the right pleural space and approximately 1400 mL of very slightly cloudy straw- colored fluid was aspirated. There were no known complications. A chest radiograph is to follow. IMPRESSION: Technically successful ultrasound-guided right thoracentesis.
[2016-06-01] MEDS ORDERED: GOLYTELY PO ONE (14:00)
--- NOTE | 2016-06-01 16:25 | PALLIATIVE CARE CONSULTATION ---
DATE: 06/01/2016 REQUESTING PHYSICIAN: Dr. Ribeiro. REASON FOR CONSULTATION: Goals of care related to stage IV pancreatic cancer. HISTORY OF PRESENT ILLNESS: This is a 75-year-old, chronically ill-appearing, female with a past medical history of diabetes mellitus, type 2, hypertension, stage IV pancreatic cancer and osteoarthritis who was most recently admitted on 05/29/2016 after presenting to the ED with complaints of chest pain which was radiating down her left arm and up to her left jaw. As well she was also complaining of nausea, palpitations and shortness of breath. Ms. Morris is actively receiving chemotherapy under the direction of Dr. Wood with her last chemotherapy treatment being 3 weeks ago. It is reported that she has a PET scan scheduled for next week. She is also being followed by Gastro for abdominal pain, cramping and chronic nausea. She was scheduled for an EGD and colonoscopy but that will be performed on an outpatient basis. Since admission Ms. Morris has been evaluated by Cardiology who does not feel that aggressive cardiac testing would be of benefit due to her other medical issues. Currently, Ms. Morris is sitting up in the bed. She has just received medications for nausea and pain and does of appear drowsy. She complains of pain to the site of her recent thoracentesis that was performed today. She does state that since the procedure her shortness of breath has greatly improved. Mr. Morris's daughter and son are at the bedside. The palliative care team has been consulted to assist with goals of care. REVIEW OF SYSTEMS: A 12 point review of systems has been conducted and otherwise negative except those mentioned in the HPI. PAST MEDICAL HISTORY: See HPI. PAST SURGICAL HISTORY: 1. Hysterectomy. 2. Hemorrhoidectomy. 3. Whipple procedure. FAMILY HISTORY: None pertinent. SOCIAL HISTORY: Prior to this admission she lived at home alone. She does require daily caregivers while at home. Her son and daughter live very close to her and are very attentive to her care. PHYSICAL EXAM: General: This is a chronically ill-appearing, 75-year-old female, who does not appear to be in any acute distress. HEENT: Atraumatic, normocephalic. Neck: Supple. Cardiovascular: Normal S1, S2. Pulmonary: Lung sounds are diminished. Respirations are nonlabored. Abdomen: Soft. Bowel sounds are active. Extremities: Pulses are palpable. Skin: Pale, warm and dry. Neuro: She is alert and oriented to person, place and time. IMPRESSION: This is a 75-year-old, chronically ill-appearing, female with a past medical history as listed above in the HPI. The palliative care team was consulted to assist with goals of care. I met with the patient, her son and daughter to talk about those goals of care. In regards to advanced directive and power of tax associate attorney, Ms. Morris does not have either document nor does she know what her wishes are regarding those documents. Further information about advanced directive and power tax associate attorney will be given to the patient and her family per their request. Dr. Wood actually came in during our consultation and has requested that the patient follow up in his office next week to discuss further treatment. The patient states that she would like to go home with home health as well as physical therapy. I feel like Ms. Morris is a candidate for outpatient palliative care services. I have explained those services and to the patient and her family and they are agreeable. It appears at this time that Ms. Morris's palliative performance scale is 50%. She does complain of pain to the site of her thoracentesis as well as nausea but appears to be a chronic issue. The palliative care team will continue to follow to evaluate the effectiveness of her current medications as she had just received Zofran and morphine just prior to my visit which appeared to be effective at this time. Ms. Morris is currently a full code. The palliative care team will continue to follow. Thank you for this consultation. Dictated by KENDALL Duenas for Travis Vallejo MD cc: KENDALL Duenas MD Timothy P. Weirich, MD
[2016-06-01] MEDS: NON-FORMULARY BULK MED PO SCH (17:21)
[2016-06-01] MEDS ORDERED: MISC. PHARMACY COMMUNICATION SCH (18:00)
[2016-06-02] MEDS: MORPHINE IV PRN ×2 (01:39→06:15)
[2016-06-02] MEDS: NON-FORMULARY BULK MED PO SCH (05:43)
[2016-06-02] MEDS: PRILOSEC PO SCH (06:14)
[2016-06-02] MEDS: HUMALOG SUBQ SCH (06:16)
[2016-06-02] MEDS: NITROGLYCERIN TOP SCH (06:16)
[2016-06-02 07:54] VITALS: BP 108/47
[2016-06-02] MEDS ORDERED: ROXANOL CONC. LIQUID PO PRN (08:25)
[2016-06-02] MEDS: NORCO-10 PO PRN (08:56)
[2016-06-02] MEDS: NICODERM PATCH TD SCH (09:29)
[2016-06-02] MEDS: REGLAN PO SCH (09:29)
[2016-06-02] MEDS: LASIX PO SCH (09:29)
[2016-06-02] MEDS: PRINIVIL PO SCH (09:29)
[2016-06-02] MEDS: ASPIRIN PO SCH (09:29)
[2016-06-02] MEDS: LOVENOX SUBQ SCH (09:30)
[2016-06-02] MEDS: VALIUM PO SCH (09:33)
--- NOTE | 2016-06-02 11:39 | DISCHARGE SUMMARY ---
ADMISSION DATE: 05/30/2016 DISCHARGE DATE: 06/02/2016 DISCHARGE DIAGNOSES: 1. Angina. 2. Hypertension. 3. Diabetes. 4. Stage IV pancreatic cancer. 5. Severe dysphagia. 6. Right pleural effusion. OPERATIVE PROCEDURES: Thoracentesis per Radiology. CONSULTATIONS: 1. Hector Milan MD 2. Jd Wood MD 3. Maynor Mckeon MD HOSPITAL COURSE: This 75-year-old white female with a history of known stage IV pancreatic cancer presented with chest pain. Cardiac enzymes were positive. Dr. Maynor Mckeon saw the patient and thought due to her overall prognosis, that aggressive cardiological of intervention was inappropriate. I agreed. As a comfort measure was recommended, the patient undergo a thoracentesis of her right pleural effusion to help with her breathing. She initially refused this but then was convinced by Dr. Jd Wood that this was an appropriate palliative measure. She underwent this procedure with great success in removing the fluid and her breathing was improved. The patient has a recent history of worsening dysphagia. Dr. Milan had scheduled an outpatient upper and lower endoscopy. He was consulted here and initially put her on the schedule for that. There was reconsideration of performing this procedure and the patient was ready for discharge. Due to swallowing difficulties which continued, we have changed her over to liquid Roxanol for pain control. PROGNOSIS: Her overall long-term prognosis is very, very poor. We hope that we can keep her comfortable. Palliative care consult was undertaken. cc: Maco Ribeiro MD
--- NOTE | 2016-06-02 12:04 | PALLIATIVE CARE PROGRESS NOTE ---
DATE: 06/02/2016 SUBJECTIVE: Ms. Morris is sitting up in the hospital bed. She continues to complain of pain. Today she described it as generalized abdominal pain. She currently denies nausea and anxiety. She is getting ready to be discharged home. OBJECTIVE: General: This is a chronically ill-appearing 75-year-old female, who does not appear to be in any acute distress. HEENT: Atraumatic, normocephalic. Neck: Supple. Cardiovascular: Normal S1 and S2. Pulmonary: Lung sounds are diminished. Respirations are nonlabored. Abdomen: Soft. Bowel sounds are active. Extremities: Pulses are palpable. ASSESSMENT AND PLAN: Ms Morris is being prepped for discharge home with home health. I do feel like that Ms. Morris is appropriate for the outpatient palliative care program. The family will be contacted and given further information regarding that program. During my visit, Ms. Morris was given a dose of Roxanol to help alleviate her pain. The nurse states that she was also given a prescription to go home with, Roxanol. Ms. Morris and I discussed this medication and the use of this medication. I feel that Ms. Morris's palliative performance scale is 50%. Dictated by KENDALL Duenas for Travis Vallejo MD cc: KENDALL Duenas MD Timothy P. Weirich, MD
== END 2016-06-02 09:55 | disposition home health service (06) ==
LOC: ED 23:40 → 3N 05-30 03:53 → SUATTDRO 05-30 03:53
PROVIDERS: ADMIT Internal Medicine; ATTEND Internal Medicine